=== PATIENT | female | born 1955 | race Caucasian/White ===

== ENCOUNTER 2024-05-06 09:56 | Inpatient (IN) | payer BC ==
[2024-05-06] MEDS: PNEUMOCOCCAL VACCINE 0.5 ML IMVAC ONE (11:01)
[2024-05-06] MEDS: NACHLORIDE 0.45% 1,000 ML IV ONE (11:46)
[2024-05-06 11:55] LABS: Absolute Basophils 0.1 K/uL (0-0.5); Absolute Eosinophils 0.1 K/uL (0-0.5); Absolute Lymphocytes (CBC) 1.5 K/uL (0.7-4.9); Absolute Monocytes 1.4 K/uL (0.1-1.3); Absolute Neutrophil 9.2 K/uL (1.8-8.0); Basophils % 0.4 % (0-1.3); Eosinophils % 0.8 % (0-4.4); Hematocrit 41.2 % (36.0-45.0); Hemoglobin 13.6 g/dL (12.0-15.0); Lymphocytes % 11.9 % (15.3-44.8); MCH 29.8 pg (27.0-35.0); MCHC 33.1 g/dL (32.0-36.0); MPV 8.6 fL (7.6-11.3); Monocytes % 11.4 % (3.3-12.3); Neutrophils % 75.5 % (41.7-73.7); Nucleated Red Blood Cells % 0.1 % (0-0); Platelets 204 thou/uL (152-406); RBC Red Blood Cell Count 4.58 M/uL (3.86-4.86)
[2024-05-06 12:02] LABS: PT Prothrombin Time 12.3 SECONDS (9.4-12.5); PTT, Activated Partial Thromb 31.5 SECONDS (24.3-36.9); Protime INR 1.17
[2024-05-06 13:48] LABS: Albumin 3.3 g/dL (3.4-5.0); Albumin/Globulin Ratio 0.8 (1.1-1.8); Anion Gap 9.2 mEq/L (5.0-15.0); Bilirubin Direct 0.4 mg/dL (0-0.2); Bilirubin Indirect, Calculated 1.1 mg/dL (0.2-0.8); Bilirubin Total 1.5 mg/dL (0.2-1.0); Globulin 3.9 g/dL (2.3-3.5); Magnesium 2.5 mg/dL (1.6-2.4); Phosphorus 2.7 mg/dL (2.5-4.9); Potassium 4.2 mEq/L (3.5-5.1); Protein, Total 7.2 g/dL (6.4-8.2)
[2024-05-06 13:57] LABS: Thyroid Stimulating Hormone 7.09 uIU/mL (0.358-3.740)
[2024-05-06] MEDS: HYDROMORPHONE HCL 1 MG/ML INJ IV PRN (14:17)
[2024-05-06] MEDS: NACHLORIDE 0.45% 1,000 ML IV SCH ×2 (14:17→22:18)
[2024-05-06 14:26] LABS: Specific Gravity > 1.030 (1.005-1.030); Urine Bacteria <20 /HPF (<20); Urine Bilirubin NEGATIVE (Negative); Urine Blood Trace (Negative); Urine Clarity Extremely Turbid (Clear); Urine Color Yellow (Yellow); Urine Culture Reflex Order NOT NEEDED; Urine Glucose NEGATIVE (Negative); Urine Ketones NEGATIVE (Negative); Urine Micro Reflex YN NO BILL MICROSCOPIC; Urine Mucus Slight /HPF (None Seen); Urine Nitrite NEGATIVE (Negative); Urine Protein 1+ (Negative); Urine Urobilinogen 1+ (Normal); Urine WBC <5 /HPF (<5); Urine pH 6.5 (5.0-7.0)
--- NOTE | 2024-05-06 15:36 | RAD REPORT ---
Procedure: Chest Pa And Lat (2 Views) HISTORY: Abdominal pain COMPARISON: none FINDINGS: The left hemidiaphragm is elevated. Mild left lower lobe opacities. No significant pleural effusion noted. The heart is mildly enlarged. IMPRESSION: Mild left lower lobe opacities probably mild pneumonia
--- NOTE | 2024-05-06 15:46 | RAD REPORT ---
EXAMINATION: CT ABDOMEN AND PELVIS WITH AND WITHOUT CONTRAST CLINICAL INDICATION: Abdominal pain. Left flank pain TECHNIQUE: CT abdomen and pelvis was performed before and after the administration of IV contrast as per department protocol. 100 cc Isovue 300 administered intravenously. Oral contrast given. Axial, sagittal and coronal reconstructions were obtained. One or more of the following dose reduction techn iques were used: Automated exposure control, adjustment of the mA and/or kV according to patient size, and/or iterative reconstruction. Unless otherwise specified, incidental findings do not require dedicated imaging follow-up. [id number]. COMPARISON: No prior exam. FINDINGS: The liver, spleen, kidneys, pancreas and adrenals appear unremarkable Mild left lower lobe opacities. Minimal left pleural effusion No evidence of diverticulitis. Colonic wall thickness normal. No adnexal mass. IMPRESSION: Mild left lower lobe opacities probably mild pneumonia
[2024-05-06] MEDS: POLYETHYL GLY 3350 17 GM/DOSE PO PRN (16:38)
[2024-05-06] MEDS ORDERED: GUAIFENESIN/CODEINE 5ML UCUP PO PRN (16:43)
[2024-05-06] MEDS: Levofloxacin 250mg IV 500 MG/100 ML BAG IV SCH (17:34)
[2024-05-06] MEDS: ALBUTEROL 2.5 MG/3 ML NEB SOL NEB SCH (19:00)
[2024-05-06] MEDS: ONDANSETRON 4 MG/2 ML VIAL IV PRN (19:53)
[2024-05-06] MEDS ORDERED: GUAIFENESIN/DM 5 ML UCUP PO PRN (21:35)
[2024-05-06] MEDS ORDERED: TRAZODONE 50 MG TABLET PO SCH (21:45)
[2024-05-06] MEDS: VALSARTAN 160 MG TAB PO SCH (21:45)
[2024-05-06] MEDS: DULOXETINE 20 MG CAP PO SCH (22:00)
[2024-05-06] MEDS: DIPHENHYDRAMINE 25 MG TAB/CAP PO PRN (22:18)
[2024-05-07] MEDS: NALOXONE HCL 2 MG/2 ML VIAL ONE (03:55)
[2024-05-07] MEDS: NALOXONE HCL 2 MG/2 ML VIAL IV ONE (04:07)
[2024-05-07] MEDS: ACETAMINOPHEN 325 MG TABLET PO PRN (04:46)
[2024-05-07 06:02] LABS: Hematocrit 37.2 % (36.0-45.0); Hemoglobin 12.6 g/dL (12.0-15.0); MCH 30.4 pg (27.0-35.0); MCHC 33.9 g/dL (32.0-36.0); MCV 89.8 fL (80-100); MPV 8.6 fL (7.6-11.3); Platelets 169 thou/uL (152-406); RBC Red Blood Cell Count 4.14 M/uL (3.86-4.86); Red Cell Distribution Width 13.8 % (12.1-15.2)
[2024-05-07 06:16] LABS: Anion Gap 7.4 mEq/L (5.0-15.0); Magnesium 2.4 mg/dL (1.6-2.4); Potassium 4.4 mEq/L (3.5-5.1)
[2024-05-07] MEDS: PANTOPRAZOLE 40MG TABLET PO SCH (06:30)
--- NOTE | 2024-05-07 06:37 | RAD REPORT ---
EXAM DESCRIPTION: X-ray single view chest. CLINICAL HISTORY: 69 years Female, resp distress COMPARISON: Chest x-ray report from 05/06/2024. The image was unavailable for review. TECHNIQUE: Single portable x-ray view of the chest performed on 05/07/2024 at 4:32 AM FINDINGS: The lungs are well expanded. There are patchy airspace opacities in the inferior hemithoraces bilater ally which may be due to a combination of atelectasis and/or pneumonia. The upper lung zones are grossly clear. There may be emphysematous changes in the right upper lobe. There is no evidence of a pneumothorax. The cardiac silhouette is prominent and may be partly accentuated by the portable technique. The mediastinal contours are normal. No acute osseous abnormality is identified. No focal soft tissue abnormalities are seen. Lines and tubes: None. Free air: None identified, IMPRESSION: 1. Patchy airspace opacities in the inferior hemithoraces bilaterally which may be due to a combina tion of atelectasis and/or pneumonia. Underlying pleural fluid is not excluded. 2. Suspect emphysematous changes in the right upper lobe. Electronically signed by: Mahogany Horner DO 05/07/2024 06:25 AM [facility] Due to temporary technical issues with the PACS/Hadapt reporting system, reports are being pradip d by the in-house radiologist without review as a courtesy to ensure prompt reporting the interpreting radiologist is fully responsible for the content of the report. Transcribed Date/Time: 05/07/2024 6:37 AM
[2024-05-07] MEDS ORDERED: ENOXAPARIN 40 MG/0.4 ML SQ SCH ×2 (07:12→09:00)
[2024-05-07] MEDS: NACHLORIDE 0.45% 1,000 ML IV SCH ×2 (07:51→15:13)
--- NOTE | 2024-05-07 08:10 | P.CNS ---
Date of Consult: 05/07/24 Reason for Consult: Respiratory failure Chief Complaint: Shortness of breath chest pain History of Present Illness: Patient is 69 years of age is currently on BiPAP has been sick for about 4 nights of worsening dyspnea she is very hypoxic on BiPAP 100% FiO2 of some left lower chest discomfort describes it as a pleuritic chest pain and productive cough with phlegm production is very tachycardic Allergies codeine Allergy (Severe, Verified 05/06/24 10:40) Rash Home Medications: Amlodipine [Norvasc] 5 mg PO DAILY 05/06/24 Duloxetine [Cymbalta Dalayed Release Pellets] 60 mg PO 1X 05/06/24 Olmesartan Medoxomil 40 mg PO 1X 05/06/24 Trazodone [Desyrel*] 50 tab PO 1X 05/06/24 - Past Medical/Surgical History Diabetic: No -: Hypertension -: Crohn's disease -: abdominal cosmatic sx -: tonsilectomy -: R knee replacement - Social History Alcohol use: No CD- Drugs: No Caffeine use: No Place of Residence: Home Review of Systems General: Weakness Respiratory: Cough, Shortness of Breath, Pleuritic Pain Physical Examination Temp Pulse Resp BP Pulse Ox 97.5 F 160 H 25 H 101/81 90 L 05/07/24 04:00 05/07/24 05:20 05/07/24 04:00 05/07/24 04:00 05/07/24 05:20 General: Alert, Mild distress Respiratory: Clear to auscultation bilaterally, Normal air movement Cardiovascular: No edema, Regular rate/rhythm, Normal S1 S2 Gastrointestinal: Normal bowel sounds, Soft and benign Laboratory Data (last 24 hrs) 05/07/24 05/07/24 05/06/24 05:47 05:47 Unknown WBC 10.30 Hgb 12.6 Hct 37.2 Plt Count 169 PT INR APTT Sodium 131 L Cancelled Potassium 4.4 Cancelled BUN 22 H Cancelled Creatinine 1.66 H Cancelled Glucose 124 H Cancelled Phosphorus Cancelled Magnesium 2.4 Cancelled Total Bilirubin Cancelled AST Cancelled ALT Cancelled Alkaline Phosphatase Cancelled 05/06/24 05/06/24 05/06/24 Unknown Unknown 11:22 WBC Cancelled 12.20 H Hgb Cancelled 13.6 Hct Cancelled 41.2 Plt Count Cancelled 204 PT Cancelled INR Cancelled APTT Cancelled Sodium Potassium BUN Creatinine Glucose Phosphorus Magnesium Total Bilirubin AST ALT Alkaline Phosphatase 05/06/24 05/06/24 11:22 11:22 WBC Hgb Hct Plt Count PT 12.3 INR 1.17 APTT 31.5 Sodium 135 L Potassium 4.2 BUN 13 Creatinine 1.22 H Glucose 131 H Phosphorus 2.7 Magnesium 2.5 H Total Bilirubin 1.5 H AST 12 L ALT 17 Alkaline Phosphatase 84 - Problems (1) Respiratory failure Current Visit: Yes Status: Acute Plan: Patient is 69 years of age admitted with a 4-day history of worsening dyspnea and left-sided pleuritic chest pain patient is very hypoxic percent FiO2 very tachycardic normal renal function count is mildly elevated patient is currently on IV levofloxacin will be transferred to the ICU patient is also tachycardic BiPAP has been adjusted EPAP increased sat around 9095% also added vancomycin cultures are pending/ RO PE agree with heparin for now. Qualifiers: Chronicity: unspecified
[2024-05-07 08:16] LABS: Anion Gap 10.8 mEq/L (5.0-15.0); Potassium 4.8 mEq/L (3.5-5.1)
[2024-05-07 08:40] LABS: Absolute Basophils 0.1 K/uL (0-0.5); Absolute Lymphocytes (CBC) 0.9 K/uL (0.7-4.9); Absolute Monocytes 1.4 K/uL (0.1-1.3); Basophils % 0.5 % (0-1.3); Eosinophils % 0.2 % (0-4.4); Hematocrit 39.1 % (36.0-45.0); Hemoglobin 13.1 g/dL (12.0-15.0); Lymphocytes % 6.9 % (15.3-44.8); MCH 30.2 pg (27.0-35.0); MCHC 33.6 g/dL (32.0-36.0); MPV 9.2 fL (7.6-11.3); Monocytes % 10.4 % (3.3-12.3); Nucleated Red Blood Cells % 0.1 % (0-0); Platelets 187 thou/uL (152-406); RBC Red Blood Cell Count 4.34 M/uL (3.86-4.86); Red Cell Distribution Width 13.7 % (12.1-15.2)
[2024-05-07] MEDS ORDERED: AMLODIPINE 5 MG TAB PO SCH (09:00)
[2024-05-07] MEDS: ASPIRIN EC 81 MG TAB PO SCH (09:01)
[2024-05-07] MEDS: ENOXAPARIN 40 MG/0.4 ML SQ SCH (09:01)
[2024-05-07 11:22] LABS: Blood Gas THB 12.7 g/dl (12-18); Blood O2 Saturation 97.9 % (92-98.5)
--- NOTE | 2024-05-07 12:13 | P.PN ---
Subjective Date of Service: 05/07/24 Chief Complaint: Shortness of breath chest pain Subjective: Worsening DIANA HAD COME TO OFFICE WITH SEVERE PAIN ON L FLANK WITH RADIATION TO L UPPER ABDOMEN. IT SOUNDED LIKE RENAL STONE BUT SHE HAD NONE. SHE HAD L LOWER LOBE EARLY PNEUMONIA. I ORDERED LEVAQUIN. SHE AT NIGHT HAD A LOT OF PAIN, WITH DILAUDID SHE HAD HYPOTENSION AND HYPOXIA. WHEN I SAW HER IN AM SHE HAD TACHYCARDIA WITH ALBUTEROL NEB, THAT WE STOPPED. SHE IS TRANSFERRED TO ICU FOR BETTER SUPERVISION FOR A DAY OR SO. I ASKED FOR STAT EKG AND TROP ENXYMES. ENZ ARE IN 300S. SHE DOES NOT HAVE KNOWN CAD. I DISCUSSED WITH THE ABOUT TE PLAN. Review of Systems 10-point ROS is otherwise unremarkable General: Weakness Eyes: As per HPI Physical Examination - Vital Signs Temperature: 97.9 F Blood Pressure: 98/66 Pulse: 133 Respirations: 32 Pulse Ox (%): 81 - Physical Exam General: Acute distress, Moderate distress HEENT: Atraumatic, PERRLA, EOMI Neck: Supple, JVD not distended Respiratory: Diminished Cardiovascular: Regular rate/rhythm, Normal S1 S2 Gastrointestinal: Normal bowel sounds, No tenderness Musculoskeletal: No tenderness Integumentary: No rashes Neurological: Normal speech, Normal tone, Normal affect Lymphatics: No axilla or inguinal lymphadenopathy - Studies Laboratory Data (last 24 hrs) 05/07/24 05/07/24 05/07/24 08:12 07:35 05:47 WBC 13.40 H Hgb 13.1 Hct 39.1 Plt Count 187 PT INR APTT Sodium 133 L 131 L Potassium 4.8 4.4 BUN 21 H 22 H Creatinine 1.73 H 1.66 H Glucose 124 H 124 H Phosphorus Magnesium 2.4 Total Bilirubin AST ALT Alkaline Phosphatase Lipase 05/07/24 05/06/24 05/06/24 05:47 Unknown Unknown WBC 10.30 Hgb 12.6 Hct 37.2 Plt Count 169 PT Cancelled INR Cancelled APTT Cancelled Sodium Cancelled Potassium Cancelled BUN Cancelled Creatinine Cancelled Glucose Cancelled Phosphorus Cancelled Magnesium Cancelled Total Bilirubin Cancelled AST Cancelled ALT Cancelled Alkaline Phosphatase Cancelled Lipase 05/06/24 05/06/24 05/06/24 Unknown 11:22 11:22 WBC Cancelled 12.20 H Hgb Cancelled 13.6 Hct Cancelled 41.2 Plt Count Cancelled 204 PT 12.3 INR 1.17 APTT 31.5 Sodium Potassium BUN Creatinine Glucose Phosphorus Magnesium Total Bilirubin AST ALT Alkaline Phosphatase Lipase 05/06/24 11:22 WBC Hgb Hct Plt Count PT INR APTT Sodium 135 L Potassium 4.2 BUN 13 Creatinine 1.22 H Glucose 131 H Phosphorus 2.7 Magnesium 2.5 H Total Bilirubin 1.5 H AST 12 L ALT 17 Alkaline Phosphatase 84 Lipase Medications List Reviewed: Yes Assessment And Plan - Current Problems (Diagnosis) (1) Bilateral pneumonia Current Visit: Yes Status: Acute Plan: LEVAQUIN IV ADDED VANCOMYCIN CULTURE PENDING. (2) Hypoxia Current Visit: Yes Status: Acute Plan: SEC TO PNEUMONIA. (3) Sinus tachycardia Current Visit: Yes Status: Acute Plan: FROM INFECTION. (4) Non-STEMI (non-ST elevated myocardial infarction) Current Visit: Yes Status: Acute Plan: CONSULT CARDIOLOGY IT MAY BE FROM STRESS, RATHER THAN CAD. ASA LOVENOX. (5) Sepsis Current Visit: Yes Status: Acute Plan: PNEUMONIA RELATED CONT MEDS. (6) Dehydration Current Visit: Yes Status: Acute Plan: RAISE IV TO 125 ML LAB DAILY.
[2024-05-07] MEDS ORDERED: NOREPINEPHRINE BITARTRATE/D5W 4 MG/250 ML KIT IV SCH (12:35)
--- NOTE | 2024-05-07 12:38 | P.CNS ---
Date of Consult: 05/07/24 Chief Complaint: Shortness of breath chest pain History of Present Illness: Patient with PMH of HTN, presented with abdominal pain, she points to her epigastic area for the pain that is constant, feels like pleurisy for her, denies palpitations, no syncope, she report mild SOB, no edema, she had an episode of tachycardia and hypoxia and was transferred to ICU she is more stable when i met her. denies any cardiac history Allergies codeine Allergy (Severe, Verified 05/06/24 10:40) Rash Home medications list reviewed: Yes Home Medications: Amlodipine [Norvasc] 5 mg PO DAILY 05/06/24 Duloxetine [Cymbalta Dalayed Release Pellets] 60 mg PO 1X 05/06/24 RX: Olmesartan Medoxomil 40 mg PO 1X 05/06/24 RX: Trazodone [Desyrel*] 50 tab PO 1X 05/06/24 - Past Medical/Surgical History Diabetic: No -: Hypertension -: Crohn's disease -: abdominal cosmatic sx -: tonsilectomy -: R knee replacement - Social History Alcohol use: No CD- Drugs: No Caffeine use: No Place of Residence: Home Review of Systems 10-point ROS is otherwise unremarkable Physical Examination Temp Pulse Resp BP Pulse Ox 97.9 F 133 H 32 H 98/66 81 L 05/07/24 12:14 05/07/24 12:14 05/07/24 12:14 05/07/24 12:14 05/07/24 12:14 General: Alert, In no apparent distress HEENT: Atraumatic, PERRLA, Mucous membr. moist/pink, EOMI, Sclerae nonicteric Neck: Supple, 2+ carotid pulse no bruit, No LAD, Without JVD or thyroid abnormality Respiratory: Clear to auscultation bilaterally, Normal air movement Cardiovascular: Regular rate/rhythm, Normal S1 S2 Gastrointestinal: Normal bowel sounds, No tenderness Musculoskeletal: No tenderness Integumentary: No rashes Neurological: Normal gait, Normal speech, Normal tone, Normal affect Lymphatics: No axilla or inguinal lymphadenopathy Laboratory Data (last 24 hrs) 05/07/24 05/07/24 05/07/24 08:12 07:35 05:47 WBC 13.40 H Hgb 13.1 Hct 39.1 Plt Count 187 PT INR APTT Sodium 133 L 131 L Potassium 4.8 4.4 BUN 21 H 22 H Creatinine 1.73 H 1.66 H Glucose 124 H 124 H Phosphorus Magnesium 2.4 Total Bilirubin AST ALT Alkaline Phosphatase Lipase 22 05/07/24 05/06/24 05/06/24 05:47 Unknown Unknown WBC 10.30 Hgb 12.6 Hct 37.2 Plt Count 169 PT Cancelled INR Cancelled APTT Cancelled Sodium Cancelled Potassium Cancelled BUN Cancelled Creatinine Cancelled Glucose Cancelled Phosphorus Cancelled Magnesium Cancelled Total Bilirubin Cancelled AST Cancelled ALT Cancelled Alkaline Phosphatase Cancelled Lipase 05/06/24 05/06/24 05/06/24 Unknown 11:22 11:22 WBC Cancelled 12.20 H Hgb Cancelled 13.6 Hct Cancelled 41.2 Plt Count Cancelled 204 PT 12.3 INR 1.17 APTT 31.5 Sodium Potassium BUN Creatinine Glucose Phosphorus Magnesium Total Bilirubin AST ALT Alkaline Phosphatase Lipase 05/06/24 11:22 WBC Hgb Hct Plt Count PT INR APTT Sodium 135 L Potassium 4.2 BUN 13 Creatinine 1.22 H Glucose 131 H Phosphorus 2.7 Magnesium 2.5 H Total Bilirubin 1.5 H AST 12 L ALT 17 Alkaline Phosphatase 84 Lipase - Problems (1) Non-STEMI (non-ST elevated myocardial infarction) Current Visit: Yes Status: Acute Plan: troponin mild elevated, continue to trend for 3 sets. get and EKG get an echo continue ASA 81 mg daily Heparin drip ACS protocol. NPO after midnight for possible coronary angiogram in am
[2024-05-07] MEDS: HEPARIN/D5W 25,000 UNIT/500 ML BAG IV SCH (12:53)
[2024-05-07] MEDS: NA CHLORIDE 0.9% 500 ML IV ONE (12:55)
[2024-05-07] MEDS: VANCOMYCIN 2 GM in NA CHLORIDE 0.9% 500 ML IVPB SCH (12:55)
[2024-05-07] MEDS: BISACODYL 10 MG RECTAL SUPP PR ONE (16:55)
--- NOTE | 2024-05-07 17:08 | RAD REPORT ---
EXAMINATION: US LOWER EXTREMITY VENOUS DOPPLER BILATERAL CLINICAL INDICATION: Female, 69 years old.RO DVT TECHNIQUE: Complete bilateral duplex sonography of the lower extremity veins was performed. The exami nation included compression for vein patency, color Doppler imaging and flow augmentation in response to distal compression of the distal external iliac, common femoral, femoral, popliteal, danyel sylvie, tibial and great saphenous veins. [id number]. COMPARISON: No prior exams FINDINGS: Duplex sonography imaging demonstrates all deep examined to be fully compressible with spontaneous, p hasic and augmented flow bilaterally. IMPRESSION: No evidence of deep venous thrombosis seen in either lower extremity.
--- NOTE | 2024-05-07 17:08 | RAD REPORT ---
EXAM: Chest Single View HISTORY: PICC COMPARISON: 05/07/2024 FINDINGS: LUNGS/PLEURA: Basilar airspace disease bilaterally. Small pleural effusions likely. MEDIASTINUM: The mediastinal silhouette is within normal limits. CARDIAC: Cardiomegaly. UPPER ABDOMEN: No significant abnormality. BONES: No acute abnormality. LINES/TUBES/OTHER: Small right subclavian approach PICC with tip overlying the proximal SVC IMPRESSION: 1. PICC tip overlies the proximal SVC. 2. Similar aeration of lungs with basilar airspace disease that may reflect combination of atelectasi s, pneumonia, and pleural fluid.
[2024-05-07 17:32] LABS: SARS-CoV-2 Antigen CONTROL BLUE LINE VIS/BG OK; SARS-CoV-2 Antigen Rapid Res Negative (Negative)
[2024-05-07] MEDS: SODIUM CHL 0.9% 1000 ML BAG IV SCH (18:22)
[2024-05-07] MEDS: Mupirocin NASAL 2 APPL/1 GM TUBE NAS SCH (21:02)
[2024-05-08 05:36] LABS: Absolute Eosinophils 0.3 K/uL (0-0.5); Absolute Lymphocytes (CBC) 1.1 K/uL (0.7-4.9); Absolute Monocytes 0.9 K/uL (0.1-1.3); Absolute Neutrophil 5.1 K/uL (1.8-8.0); Basophils % 0.6 % (0-1.3); Eosinophils % 3.5 % (0-4.4); Hematocrit 32.5 % (36.0-45.0); Hemoglobin 10.9 g/dL (12.0-15.0); Lymphocytes % 15.1 % (15.3-44.8); MCH 30.3 pg (27.0-35.0); MCHC 33.7 g/dL (32.0-36.0); MCV 90.1 fL (80-100); MPV 8.9 fL (7.6-11.3); Monocytes % 12.5 % (3.3-12.3); Neutrophils % 68.3 % (41.7-73.7); Platelets 170 thou/uL (152-406); Red Cell Distribution Width 13.3 % (12.1-15.2)
[2024-05-08 05:50] LABS: Anion Gap 7.4 mEq/L (5.0-15.0); Potassium 4.4 mEq/L (3.5-5.1)
[2024-05-08 07:02] LABS: Magnesium 2.2 mg/dL (1.6-2.4)
[2024-05-08] MEDS ORDERED: VANCOMYCIN 1.75 GM in NA CHLORIDE 0.9% 500 ML IVPB SCH (08:00)
[2024-05-08] MEDS: NA CHLORIDE 0.9% 500 ML ONE (08:30)
[2024-05-08] MEDS ORDERED: LIDOCAINE 1% 20 ML MDV ONE (08:34)
[2024-05-08] MEDS ORDERED: HEPA 1000U/500MLS 0 UNIT/0 ML BAG IV ONE (08:34)
[2024-05-08] MEDS ORDERED: HEPARIN 10,000 UNIT/10 ML VIAL IV ONE (08:34)
[2024-05-08] MEDS ORDERED: MIDAZOLAM HCL 2 MG/2 ML INJ ONE (08:34)
[2024-05-08] MEDS ORDERED: ATROPINE SULF 1 MG/10 ML SYR IV ONE (08:35)
[2024-05-08] MEDS ORDERED: ASPIRIN 325 MG TAB ONE (08:35)
[2024-05-08] MEDS ORDERED: CLOPIDOGREL 75 MG TABLET ONE (08:35)
[2024-05-08] MEDS ORDERED: HEPARIN 5000 UNIT/ML 1 ML VIAL ONE (08:35)
[2024-05-08] MEDS ORDERED: TICAGRELOR 90 MG TABLET PO ONE (08:35)
[2024-05-08] MEDS ORDERED: FENTANYL CITR 100 MCG/2 ML ONE (08:36)
[2024-05-08] MEDS ORDERED: MORPHINE 4 MG/ML SYR ONE (08:44)
[2024-05-08] MEDS: DULOXETINE 30 MG CAP PO SCH (10:00)
--- NOTE | 2024-05-08 10:47 | P.PN ---
Subjective Date of Service: 05/08/24 Chief Complaint: Shortness of breath chest pain Subjective: No new changes, No C/O voiced, Tolerating diet, Ambulating, Improving Review of Systems 10-point ROS is otherwise unremarkable Physical Examination - Vital Signs Temperature: 98.8 F Blood Pressure: 111/70 Pulse: 77 Respirations: 18 Pulse Ox (%): 96 - Physical Exam General: Alert, In no apparent distress HEENT: Atraumatic, PERRLA, EOMI Neck: Supple, JVD not distended Respiratory: Clear to auscultation bilaterally, Normal air movement Cardiovascular: Regular rate/rhythm, Normal S1 S2 Gastrointestinal: Normal bowel sounds, No tenderness Musculoskeletal: No tenderness Integumentary: No rashes Neurological: Normal speech, Normal tone, Normal affect Lymphatics: No axilla or inguinal lymphadenopathy - Studies Laboratory Data (last 24 hrs) 05/08/24 05/08/24 05/08/24 05:20 05:20 05:20 WBC 7.40 Hgb 10.9 L D Hct 32.5 L Plt Count 170 APTT 59.6 H Sodium 137 D Potassium 4.4 BUN 11 Creatinine 0.92 Glucose 109 H Magnesium 2.2 05/08/24 05/07/24 05/07/24 01:00 20:15 16:04 WBC Hgb Hct Plt Count APTT 59.7 H 77.1 H 174.5 H* Sodium Potassium BUN Creatinine Glucose Magnesium Microbiology Data (last 24 hrs): 05/06/24 14:03 Clean Catch Urine [place] Count - Final >100,000 CFU/ML. 05/06/24 14:03 Clean Catch Urine - Final MIXED DEBBIE. Medications List Reviewed: Yes Assessment And Plan - Current Problems (Diagnosis) (1) Non-STEMI (non-ST elevated myocardial infarction) Current Visit: Yes Status: Acute Plan: troponin mild elevated and trending down, attempted to do coronary angiogram today but patient was not able to lay flat due to left lateral chest pain, feels like pleurisy and she started desating, so procedure was not done. Echo shows normal EF and wall motions continue ASA 81 mg daily Heparin drip ACS protocol for 48 hours total explained to patient and family, that since her cardiac enzymes are coming down and she is not having active chest pain and hemodynamics are stable, we can wait until her breathing is better and pleurisy from PNA is improving and then will decide on stress test vs coronary angiogram. (2) Bilateral pneumonia Current Visit: Yes Status: Acute Plan: continue IV ABx per primary team. (3) Sinus tachycardia Current Visit: Yes Status: Acute Plan: most likely secondary to PNA, patient HR is better, continue to monitor on tele.
[2024-05-08] MEDS: VANCOMYCIN 2 GM in NA CHLORIDE 0.9% 500 ML IVPB SCH (11:20)
--- NOTE | 2024-05-08 12:08 | P.PN ---
Subjective Date of Service: 05/08/24 Chief Complaint: Shortness of breath chest pain Subjective: Improving DIANA HAD COME TO OFFICE WITH SEVERE PAIN ON L FLANK WITH RADIATION TO L UPPER ABDOMEN. IT SOUNDED LIKE RENAL STONE BUT SHE HAD NONE. SHE HAD L LOWER LOBE EARLY PNEUMONIA. I ORDERED LEVAQUIN. SHE AT NIGHT HAD A LOT OF PAIN, WITH DILAUDID SHE HAD HYPOTENSION AND HYPOXIA. WHEN I SAW HER IN AM SHE HAD TACHYCARDIA WITH ALBUTEROL NEB, THAT WE STOPPED. SHE IS TRANSFERRED TO ICU FOR BETTER SUPERVISION FOR A DAY OR SO. I ASKED FOR STAT EKG AND TROP ENXYMES. ENZ ARE IN 300S. SHE DOES NOT HAVE KNOWN CAD. I DISCUSSED WITH THE ABOUT TE PLAN. SHE LOOKS A LOT BETTER. OXYGEN SAT HAS IMPROVED AND SHE IS DOWN TO NC. PAIN IS BETTER. SHE HAD ONE LARGE BM. Review of Systems 10-point ROS is otherwise unremarkable General: Weakness Physical Examination - Vital Signs Temperature: 98.5 F Blood Pressure: 102/68 Pulse: 74 Respirations: 18 Pulse Ox (%): 94 - Physical Exam General: Oriented x3, Mild distress HEENT: Atraumatic, PERRLA, EOMI Neck: Supple, JVD not distended Respiratory: Clear to auscultation bilaterally, Normal air movement Cardiovascular: Regular rate/rhythm, Normal S1 S2 Gastrointestinal: Normal bowel sounds, No tenderness Musculoskeletal: No tenderness Integumentary: No rashes Neurological: Normal speech, Normal tone, Normal affect Lymphatics: No axilla or inguinal lymphadenopathy - Studies Laboratory Data (last 24 hrs) 05/08/24 05/08/24 05/08/24 05:20 05:20 05:20 WBC 7.40 Hgb 10.9 L D Hct 32.5 L Plt Count 170 APTT 59.6 H Sodium 137 D Potassium 4.4 BUN 11 Creatinine 0.92 Glucose 109 H Magnesium 2.2 05/08/24 05/07/24 05/07/24 01:00 20:15 16:04 WBC Hgb Hct Plt Count APTT 59.7 H 77.1 H 174.5 H* Sodium Potassium BUN Creatinine Glucose Magnesium Microbiology Data (last 24 hrs): 05/06/24 14:03 Clean Catch Urine [place] Count - Final >100,000 CFU/ML. 05/06/24 14:03 Clean Catch Urine - Final MIXED DEBBIE. Medications List Reviewed: Yes Assessment And Plan - Current Problems (Diagnosis) (1) Bilateral pneumonia Current Visit: Yes Status: Acute Plan: LEVAQUIN IV ADDED VANCOMYCIN CULTURE PENDING. IMPROVED A LOT. CXR FU. IV ABX. CULTURE PENDING. VANCO AND LEVAQUIN (2) Hypoxia Current Visit: Yes Status: Acute Plan: SEC TO PNEUMONIA. (3) Sinus tachycardia Current Visit: Yes Status: Acute Plan: FROM INFECTION. FROM SEPSIS, CONTROLLED NOW. (4) Non-STEMI (non-ST elevated myocardial infarction) Current Visit: Yes Status: Acute Plan: CONSULT CARDIOLOGY IT MAY BE FROM STRESS, RATHER THAN CAD. ASA LOVENOX. CATH TRIED SHE COULD NOT LAY FLAT. DR. PLATA WILL FU OUTPATIENT. (5) Sepsis Current Visit: Yes Status: Acute Plan: PNEUMONIA RELATED CONT MEDS. (6) Dehydration Current Visit: Yes Status: Acute Plan: RAISE IV TO 125 ML LAB DAILY. IMPRVOED TO NORMAL AFTER AGGRESSIVE IV FLUIDS. (7) Constipation Current Visit: Yes Status: Acute Plan: ENEMA IMPROVED. (8) Respiratory failure Current Visit: Yes Status: Acute Plan: RESOLVED. CONT THERAPY. Qualifiers: Chronicity: unspecified
[2024-05-08] MEDS: NACHLORIDE 0.45% 1,000 ML IV SCH (12:34)
--- NOTE | 2024-05-09 07:36 | RAD REPORT ---
EXAMINATION: ONE VIEW CHEST XR CLINICAL INDICATION: pneumonia TECHNIQUE: Frontal chest projection is submitted. Examination is limited by patient positioning and t echnique. COMPARISON: 05/07/2024 FINDINGS: Patchy opacities are present in both lower lungs with trace left pleural fluid. This may represent pn eumonia and appears mildly improved since comparison study. The heart is upper limit of normal in size. Right-sided PICC line has tip in the SVC. IMPRESSION: Mild improvement in bibasilar lung aeration noted since comparative study.
[2024-05-09] MEDS ORDERED: POLYETHYL GLY 3350 17 GM/DOSE PO PRN (08:07)
[2024-05-09 08:45] LABS: Absolute Basophils 0.1 K/uL (0-0.5); Absolute Eosinophils 0.3 K/uL (0-0.5); Absolute Lymphocytes (CBC) 1.3 K/uL (0.7-4.9); Absolute Monocytes 0.8 K/uL (0.1-1.3); Eosinophils % 4.4 % (0-4.4); Hematocrit 31.6 % (36.0-45.0); Hemoglobin 10.8 g/dL (12.0-15.0); Lymphocytes % 20.7 % (15.3-44.8); MCH 30.5 pg (27.0-35.0); MCHC 34.3 g/dL (32.0-36.0); MCV 88.8 fL (80-100); MPV 9.3 fL (7.6-11.3); Monocytes % 12.7 % (3.3-12.3); Neutrophils % 61.2 % (41.7-73.7); Nucleated Red Blood Cells % 0.1 % (0-0); Platelets 201 thou/uL (152-406); RBC Red Blood Cell Count 3.56 M/uL (3.86-4.86); Red Cell Distribution Width 13.1 % (12.1-15.2)
[2024-05-09 08:58] LABS: Anion Gap 5.1 mEq/L (5.0-15.0); Potassium 4.1 mEq/L (3.5-5.1)
[2024-05-09] MEDS: ENOXAPARIN 40 MG/0.4 ML SQ SCH (09:22)
[2024-05-09] MEDS: LACTULOSE 20 GM/30 ML UCUP PO SCH (09:22)
[2024-05-09] MEDS: HYDROCORTISONE 1 % OINT 30GM TOP SCH (09:22)
--- NOTE | 2024-05-09 10:27 | RAD REPORT ---
EXAMINATION: CTA CHEST PE CLINICAL INDICATION: RO PE TECHNIQUE: This examination was performed according to an angiographic protocol with 3D post-processi ng. This involves 3D reconstructions, MIPs, volume rendered images and/or shaded surface rendering. One or more of the following dose reduction techniques were used: Automated exposure control, adjustm ent of the mA and/or kV according to patient size, and/or iterative reconstruction. Unless otherwise specified, incidental findings do not require dedicated imaging follow-up. COMPARISON: No prior exam. FINDINGS: PULMONARY ARTERIES: Bilateral pulmonary emboli are present involving both the left and right main pul monary arteries. Distal branches are also involved. Evidence of mild RV strain pattern. THORACIC AORTA: Normal caliber and configuration. LUNGS: Lungs are mildly emphysematous. Airspace opacities in both lungs probably pulmonary edema or p neumonia. PLEURA: Trace right and small to moderate left pleural effusion. MEDIASTINUM AND LYMPH NODES: No mediastinal mass or fluid collection. Normal size mediastinal, hilar, and axillary lymph nodes. OSSEOUS STRUCTURES AND CHEST WALL: Intact. UPPER ABDOMEN: No significant abnormalities. IMPRESSION: Extensive bilateral pulmonary embolism is present as detailed. Mild to moderate RV strain pattern. The findings were communicated with Tonny Bernal MD at 05/09/2024 10:24 AM by telephone.
[2024-05-09 10:35] VITALS: BMI 32.5
[2024-05-09] MEDS ORDERED: HEPARIN/D5W 25,000 UNIT/500 ML BAG IV SCH (11:00)
[2024-05-09] MEDS ORDERED: ENOXAPARIN 100 MG/ML SYR SQ SCH (11:00)
--- NOTE | 2024-05-09 11:11 | P.PN ---
Subjective Date of Service: 05/10/24 Chief Complaint: Extensive pulmonary embolism Patient is doing slightly better pain has improved still very hypoxic CT scan today showed extensive pulmonary embolism Review of Systems General: Weakness Respiratory: Shortness of Breath Physical Examination - Vital Signs Temperature: 98.4 F Blood Pressure: 101/61 Pulse: 78 Respirations: 18 Pulse Ox (%): 97 - Physical Exam General: Alert, In no apparent distress, Oriented x3 Respiratory: Normal air movement, Diminished (Initially on the left side) Cardiovascular: No edema, Regular rate/rhythm - Studies Laboratory Data (last 24 hrs) 05/09/24 05/09/24 05/09/24 08:36 08:36 08:36 WBC 6.50 Hgb 10.8 L Hct 31.6 L Plt Count 201 APTT 54.9 H Sodium 140 Potassium 4.1 BUN 8 Creatinine 0.82 Glucose 102 05/08/24 05/08/24 20:35 16:15 WBC Hgb Hct Plt Count APTT 60.3 H 59.7 H Sodium Potassium BUN Creatinine Glucose Microbiology Data (last 24 hrs): 05/06/24 14:03 Clean Catch Urine [place] Count - Final >100,000 CFU/ML. 05/06/24 14:03 Clean Catch Urine - Final MIXED DEBBIE. Medications List Reviewed: Yes Assessment And Plan - Current Problems (Diagnosis) (1) Pulmonary embolism Status: Acute Plan: Patient is 69 years of age admitted with the hypoxemia was able to do a CT pulmonary angiogram today shows extensive pulmonary embolism addition to left- sided pleural effusion at the right ventricle echocardiogram has been ordered she continues to remain hypoxic likely she is going to need tPA I have resumed heparin full dose for now antibiotics I have discussed extensively in the presence of family members and the the risks and benefits of giving thrombolytic therapy repeat echocardiogram did show evidence of right ventricular strain dilated right ventricle in view of her history of significant hypotension hypoxemia patient may benefit from thrombolytic therapy currently there are no contraindications family members elected to stay at this hospital and receive treatment patient will get TN K 50 mg 1 dose and will need lifelong anticoagulation The risks of bleeding stroke etc were discussed in the presence of patient family members with the nurse present in the patients room. The patient and agreed to have TNK at [facility]. Option to tranfer to tertiary was offered as per daughters request and was declined by the patient. Daughters requested transfer to [facility] and no beds were availalbe. Dr. Ulloa discuseed with the about the use of TNK for PE Qualifiers: Acute cor pulmonale presence: unspecified
--- NOTE | 2024-05-09 12:13 | P.PN ---
Subjective Date of Service: 05/09/24 Chief Complaint: CHEST PAIN, LOW OXYGEN, CONSTIPATION Subjective: No new changes SHE HAS LOWER L CHEST PAIN WITH BREATHING. SHE IS HYPOXIC WITH NEED OF 4 LTNC OXYGEN. HER PE STUDY IS POS FOR EXTENSIVE PE. DR. ISLAS IS ON THE CASE. HE CONTINUED HEPARIN PROTOCOL SHE IS ON FOR POSSIBLE ANGINA ALSO. HER CONSTIPATION IS BETTER. SHE IS COUGHING BUT NOT MUCH SPUTUM AND IT IS THICK. Review of Systems 10-point ROS is otherwise unremarkable General: Weakness, Malaise Respiratory: Shortness of Breath, Pleuritic Pain Physical Examination - Vital Signs Temperature: 97.2 F Blood Pressure: 101/60 Pulse: 87 Respirations: 18 Pulse Ox (%): 93 - Physical Exam General: Mild distress HEENT: Atraumatic, PERRLA, EOMI Neck: Supple, JVD not distended Respiratory: Clear to auscultation bilaterally, Normal air movement Cardiovascular: Regular rate/rhythm, Normal S1 S2 Gastrointestinal: Normal bowel sounds, No tenderness Musculoskeletal: No tenderness Integumentary: No rashes Neurological: Normal speech, Normal tone, Normal affect Lymphatics: No axilla or inguinal lymphadenopathy - Studies Laboratory Data (last 24 hrs) 05/09/24 05/09/24 05/09/24 08:36 08:36 08:36 WBC 6.50 Hgb 10.8 L Hct 31.6 L Plt Count 201 APTT 54.9 H Sodium 140 Potassium 4.1 BUN 8 Creatinine 0.82 Glucose 102 05/08/24 05/08/24 20:35 16:15 WBC Hgb Hct Plt Count APTT 60.3 H 59.7 H Sodium Potassium BUN Creatinine Glucose Microbiology Data (last 24 hrs): 05/06/24 14:03 Clean Catch Urine [place] Count - Final >100,000 CFU/ML. 05/06/24 14:03 Clean Catch Urine - Final MIXED DEBBIE. Medications List Reviewed: Yes Assessment And Plan - Current Problems (Diagnosis) (1) Bilateral pneumonia Current Visit: Yes Status: Acute Plan: LEVAQUIN IV ADDED VANCOMYCIN CULTURE PENDING. IMPROVED A LOT. CXR FU. IV ABX. CULTURE PENDING. VANCO AND LEVAQUIN MAY NOT BE THE ONLY ISSUE. PE STUDY IS POSITIVE. SHE HAD COUGH, SPUTUM AND ELEVATED WBC ON ADMISSION WITH PLEURITIC PAIN. (2) Hypoxia Current Visit: Yes Status: Acute Plan: SEC TO PNEUMONIA. (3) Sinus tachycardia Current Visit: Yes Status: Acute Plan: FROM INFECTION. FROM SEPSIS, CONTROLLED NOW. (4) Non-STEMI (non-ST elevated myocardial infarction) Current Visit: Yes Status: Acute Plan: CONSULT CARDIOLOGY IT MAY BE FROM STRESS, RATHER THAN CAD. ASA LOVENOX. CATH TRIED SHE COULD NOT LAY FLAT. DR. PLATA WILL FU OUTPATIENT. (5) Sepsis Current Visit: Yes Status: Acute Plan: PNEUMONIA RELATED CONT MEDS. (6) Dehydration Current Visit: Yes Status: Acute Plan: RAISE IV TO 125 ML LAB DAILY. IMPRVOED TO NORMAL AFTER AGGRESSIVE IV FLUIDS. (7) Constipation Current Visit: Yes Status: Acute Plan: ENEMA IMPROVED. (8) Respiratory failure Current Visit: Yes Status: Acute Plan: RESOLVED. CONT THERAPY. Qualifiers: Chronicity: unspecified (9) Pulmonary embolism Current Visit: Yes Status: Acute Plan: HEPARIN PROTOCOL MAY DECIDE ON TPA LIFE TIME ANTICOAGUALTION. HYPERCOAGULATION STUDIES ORDERED FOR HER AND FOR HER CHILDREN'S FUTURE TESTING RECOMMENDATIONS.. Qualifiers: Acute cor pulmonale presence: unspecified
--- NOTE | 2024-05-09 12:26 | ECHO ---
HEIGHT: 5 ft 9 in WEIGHT: 220 lb 0 oz DATE OF STUDY: 05/08/[address]: Carlito Bundy MD 2-DIMENSIONAL: YES M.MODE: YES DOPPLER: YES COLOR FLOW: YES TDS: YES PORTABLE: YES DEFINITY: NO BUBBLE STUDY: NO DIAGNOSIS: CHEST PAIN CARDIAC HISTORY: CATHERIZATION: NO SURGERY: NO PROSTHETIC VALVE: NO PACEMAKER: NO MEASUREMENTS (cm) DIASTOLIC (NORMALS) SYSTOLIC (NORMALS) IVSd 1.3 (0.6-1.2) LA Diam 3.0 (1.9-4.0) LVEF 60-65% LVIDd 3.7 (3.5-5.7) LVIDs 2.5 (2.0-3.5) %FS 34% LVPWd 1.4 (0.6-1.2) Ao Diam 3.0 (2.0-3.7) 2 DIMENSIONAL ASSESSMENT: RIGHT ATRIUM: NORMAL LEFT ATRIUM: NORMAL RIGHT VENTRICLE: MILDLY DILATED LEFT VENTRICLE: NORMAL TRICUSPID VALVE: NORMAL MITRAL VALVE: NORMAL PULMONIC VALVE: NORMAL AORTIC VALVE: NORMAL PERICARDIAL EFFUSION: NONE AORTIC ROOT: NORMAL LEFT VENTRICULAR WALL MOTION: NORMAL. DOPPLER/COLOR FLOW: SEE BELOW. COMMENTS: 1. POOR QUALITY ECHO. 2. OVERALL NORMAL LEFT VENTRICULAR EJECTION FRACTION 60-65%. 3. MILDLY DILATED RIGHT VENTRICLE WITH PRESERVED FUNCTION. TECHNOLOGIST: AHMET MAURICIO
[2024-05-09] MEDS: TENECTEPLASE 50 MG/10 ML VIAL IV STA (15:30)
[2024-05-09] MEDS: FENTANYL CITR 100 MCG/2 ML IV PRN (18:34)
[2024-05-09] MEDS: METOPROLOL TARTRATE 5 MG/5 ML INJ IV STA (18:49)
[2024-05-09] MEDS: AMIODARONE HCL 150 MG in D5W 100 ML IV STA (18:53)
[2024-05-09] MEDS: AMIODARONE HCL 900 MG in Dextrose 5%-Water 482 ML IV SCH (19:13)
--- NOTE | 2024-05-09 21:03 | RAD REPORT ---
EXAMINATION: CT HEAD WITHOUT CONTRAST CLINICAL INDICATION: Female, 69 years old.new confusion, headache back of head TECHNIQUE: Axial CT images from the skull base to the vertex without intravenous contrast. Coronal an d sagittal reformatted images were created from the data set. One or more of the following dose reduction techniques were used: Automated exposure control, adjustment of the mA and/or kV according to patient size, and/or iterative reconstruction. Unless otherwise specified, incidental findings do not require dedicated imaging follow-up. [id number]. COMPARISON: No prior exam. FINDINGS: INTRACRANIAL: Acute intracranial hemorrhage is present. There is a moderate-sized intraparenchymal bl eed centered in the left temporal lobe measuring approximately 5.7 x 2.2 cm. A second possibly intraparenchymal hemorrhage is present at the left posterior frontal lobe measuring approximately 2.8 cm. Small area of possible intracranial hemorrhage in the medial inferior left frontal lobe measuring 1.6 cm. There are scattered areas of subarachnoid hemorrhage bilaterally. Minimal left-to-r ight midline shift. No hydrocephalus although there is some partial effacement of the left lateral ventricle. Small volume of intraventricular hemorrhage in the body of the right lateral ventricle. N o acute large vascular territory infarct. VASCULATURE: No visualized abnormalities in the arteries or dural venous sinuses. SCALP/SKULL: No significant soft tissue or osseous abnormalities. SINUSES: The visualized paranasal sinuses and mastoid air cells are predominantly clear. IMPRESSION: Acute intracranial hemorrhage is present with moderate sized intraparenchymal hemorrhage in the left temporal lobe and at least two other smaller intraparenchymal hematomas at the inferior left frontal and left posterior frontal lobes. Scattered areas of bilateral subarachnoid hemorrhage. Small volume of intraventricular hemorrhage in the right lateral ventricle. Minimal [id number] midline shift. Discussed with Dr. Bernal by Dr. Medina at 852 pm on 05/09/24.
--- NOTE | 2024-05-09 21:04 | RAD REPORT ---
EXAMINATION: CT CERVICAL SPINE WITHOUT CONTRAST CLINICAL INDICATION: Female, 69 years old. hx of fall, headache TECHNIQUE: Axial CT images through the cervical spine were obtained without intravenous contrast. Sag ittal and coronal reformatted images were created from the data set. One or more of the following dose reduction techniques were used: Automated exposure control, adjustment of the mA and/or kV accor ding to patient size, and/or iterative reconstruction. Unless otherwise specified, incidental findings do not require dedicated imaging follow-up. [id number]. COMPARISON: No prior exam. FINDINGS: ALIGNMENT: The cervical spine has normal alignment without scoliosis or spondylolisthesis. BONE: Vertebral body heights are maintained. No aggressive osseous lesions. DISCS: Disc heights are maintained. LEVELS: Multilevel cervical spondylosis with scattered areas of uncovertebral joint hypertrophy and m ild facet degenerative changes but no high-grade central spinal stenosis. Neural foraminal narrowing is severe on the left at C3-4. SOFT TISSUE: Moderate left and small right pleural effusion. IMPRESSION: No acute fracture or traumatic malalignment of the cervical spine.
[2024-05-09] MEDS: TRANEXAMIC ACID 1,000 MG in NA CHLORIDE 0.9% 50 ML IV ONE (21:13)
[2024-05-09] MEDS ORDERED: TRANEXAMIC ACID 1,000 MG/10 ML VIAL IV ONE (21:30)
[2024-05-09] MEDS ORDERED: NA CHLORIDE 0.9% 100 ML ONE ×2 (21:30→22:27)
[2024-05-09] MEDS: LEVETIRACETAM 500 MG/5 ML VIAL IV ONE (22:25)
[2024-05-09] MEDS: levETIRAcetam 1,000 MG in NA CHLORIDE 0.9% 100 ML IV STA (22:30)
--- NOTE | 2024-05-09 22:34 | P.PN ---
Subjective Date of Service: 05/10/24 Chief Complaint: Intracranial hemorrhage Patient developed altered mental status CT scan shows intracranial hemorrhage I came over here to the ICU patient is alert disoriented hemodynamically stable requiring some oxygen family members at the bedside Review of Systems is unable to be obtained Physical Examination - Vital Signs Temperature: 97.6 F Blood Pressure: 146/93 Pulse: 63 Respirations: 13 Pulse Ox (%): 92 - Physical Exam General: Delirious Neck: Supple Respiratory: Clear to auscultation bilaterally Cardiovascular: No edema, Regular rate/rhythm (Neurological exam patient is not following commands alert disoriented is moving her extremities restless) - Studies Laboratory Data (last 24 hrs) 05/09/24 05/09/24 05/09/24 19:35 11:45 08:36 WBC Hgb Hct Plt Count APTT 32.4 34.5 54.9 H Sodium Potassium BUN Creatinine Glucose 05/09/24 05/09/24 08:36 08:36 WBC 6.50 Hgb 10.8 L Hct 31.6 L Plt Count 201 APTT Sodium 140 Potassium 4.1 BUN 8 Creatinine 0.82 Glucose 102 Microbiology Data (last 24 hrs): 05/09/24 13:58 Nasopharnyx Influenza Type A Antigen Screen - Final 05/09/24 13:58 Nasopharnyx Influenza Type B Antigen Screen - Final Medications List Reviewed: Yes Assessment And Plan - Current Problems (Diagnosis) (1) Pulmonary embolism Status: Acute Plan: Extensive PE with R vent strain and hypoxemia/ S/P TNK Qualifiers: Acute cor pulmonale presence: unspecified (2) Intracranial hemorrhage Status: Acute Plan: Patient developed intracranial hemorrhage after TNK was given patient was given 900 mg of tranxemic acid, cryoprecipitate ordered 1 g of Keppra also given [facility] was contacted I personally talked to the neurosurgical unit and was patient was accepted for transfer patient's oxygenation has improved blood pressure stable/ I arrived to the ICU soon after I was informed about the diagnosis of intracarnial heomrrhage by Dr. Medina and Artemio. I coordinated care and tranfer of the patient to [facility] was prese nt inICU until transported by life flight
[2024-05-09] MEDS ORDERED: NA CHLORIDE 3% 500 ML ONE (22:48)
[2024-05-09 23:36] VITALS: O2SAT 94
[2024-05-10] MEDS ORDERED: PANTOPRAZOLE 40MG TABLET PO SCH (07:30)
[2024-05-10] MEDS ORDERED: levoFLOXacin 500 MG TAB PO SCH (09:00)
[2024-05-10 16:57] VITALS: BP 146/93; TEMP 97.6
[2024-05-11 04:17] LABS: 1,25 Dihydroxy Vitamin D3 64 pg/mL; Vitamin D 1,25-Dihydroxy Total 64 pg/mL (18-72); Vitamin D,1,25-OH2, D2 <8 pg/mL
--- NOTE | 2024-05-12 07:28 | ECHO ---
HEIGHT: 5 ft 9 in WEIGHT: 220 lb 0 oz DATE OF STUDY: 05/09/[address]: Tonny Bernal MD 2-DIMENSIONAL: YES M.MODE: YES DOPPLER: YES COLOR FLOW: YES TDS: NO PORTABLE: YES DEFINITY: NO BUBBLE STUDY: NO DIAGNOSIS: PULMONARY EMBOLISM REPEAT ECHO CARDIAC HISTORY: CATHERIZATION: SURGERY: PROSTHETIC VALVE: PACEMAKER: MEASUREMENTS (cm) DIASTOLIC (NORMALS) SYSTOLIC (NORMALS) IVSd 1.0 (0.6-1.2) LA Diam 4.8 (1.9-4.0) LVEF 56% LVIDd 3.9 (3.5-5.7) LVIDs 2.8 (2.0-3.5) %FS 29% LVPWd 1.0 (0.6-1.2) Ao Diam (2.0-3.7) COMMENTS: 1. FOCUSED ECHO AFTER THROMBOYTIC THERAPY. 2. NORMAL LEFT VENTRICULAR EJECTION FRACTION. 3. VERY POOR QUALITY ECHO. TECHNOLOGIST: NICHOLAS HANNA
[2024-05-12 20:21] LABS: Homocysteine 7.9 umol/L (<10.4)
[2024-05-14 04:15] LABS: Anti-Thrombin III Activity 155 % normal (80-135)
[2024-05-15 04:37] LABS: Anti-Cardiolipin IgG Antibody <2.0 GPL-U/mL (<20.0); Anti-Cardiolipin IgM Antibody <2.0 MPL-U/mL (<20.0)
[2024-05-15 12:11] LABS: Protein C Antigen 83 % normal (70-140)
[2024-05-16 17:38] LABS: Factor V (Leiden) Interp REPORT; Factor V (Leiden) Result NEGATIVE
== END 2024-05-10 00:15 | disposition short-term general hospital (02) | DRG 871 ==
LOC: 4TH 09:56 → 3RD-ICU 05-07 11:55 → OBSVTOIN 05-07 17:56 → 4TH 05-08 14:54 → 3RD-ICU 05-09 14:28
PROVIDERS: ADMIT Internal Medicine; ATTEND Internal Medicine
PROC: 02HV33Z Insertion of Infusion Device into Superior Vena Cava, Percutaneous Approach (ICD-10-PCS; 2024-05-07)
PROC: 5A09457 Assistance with Respiratory Ventilation, 24-96 Consecutive Hours, Continuous Positive Airway Pressure (ICD-10-PCS; 2024-05-07)
PROC: 3E03317 Introduction of Other Thrombolytic into Peripheral Vein, Percutaneous Approach (ICD-10-PCS; principal; 2024-05-09)
PROC: 30233K1 Transfusion of Nonautologous Frozen Plasma into Peripheral Vein, Percutaneous Approach (ICD-10-PCS; 2024-05-09)
PROC: 0T9B70Z Drainage of Bladder with Drainage Device, Via Natural or Artificial Opening (ICD-10-PCS; 2024-05-09)
DX: A41.9 Sepsis, unspecified organism (principal); I21.4 Non-ST elevation (NSTEMI) myocardial infarction; J96.01 Acute respiratory failure with hypoxia; J18.9 Pneumonia, unspecified organism; I26.99 Other pulmonary embolism without acute cor pulmonale; I62.9 Nontraumatic intracranial hemorrhage, unspecified; I10 Essential (primary) hypertension; E86.0 Dehydration; K59.00 Constipation, unspecified; Z88.5 Allergy status to narcotic agent; Z11.52 Encounter for screening for COVID-19; Z96.651 Presence of right artificial knee joint; Z79.899 Other long term (current) drug therapy
CPT/HCPCS: 36415; 70450; 71045; 71046; 71275; 72125; 74178; 80048; 80076; 81001; 81241; 82306; 82550; 82607; 82652; 82805; 82947; 83036; 83090; 83605; 83690; 83735; 84100; 84439; 84443; 84484; 85025; 85027; 85300; 85302; 85305; 85306; 85610; 85730; 86147; 86850; 86900; 86901; 87040; 87070; 87086; 87088; 87205; 87804; 87811; 93306; 93970; 94640; 94660; G0378; G0379; J0282; J0461; J1171; J1644; J1650; J1953; J2003; J2250; J2310; J2405; J3010; J3101; J7030; J7040; J7060; J7131; J7613; P9012; Q9967